=== PATIENT | male | born 1950 | race Caucasian/White ===

== ENCOUNTER 2018-10-08 12:05 | Emergency (ER) | payer MEDICARE, SELFPAY ==
[2018-10-08 12:25] VITALS: BP 148/85; PULSE 81; RESP 20; TEMP 36.6; O2SAT 99
--- NOTE | 2018-10-08 12:41 | ED.BACK ---
HPI - Back Pain/Injury General Chief Complaint: Back Pain/Injury Stated Complaint: believe he's having a kidney stone Time Seen by Provider: 10/08/18 12:37 Source: patient Mode of arrival: ambulatory Limitations: no limitations History of Present Illness HPI Narrative: Patient is a 68-year-old male who presents with right flank pain started suddenly he feels like it is radiating down his back but he feels like he has frequent urination and might be going to his groin as well. He has had a kidney stone on the left few years back he said this feels similar. However does not kidney stones frequently. He denies blood in his urine. He has been nauseous and vomiting as well. He denies any fevers. MD Complaint: other (Right flank pain) Duration: intermittent and progressively worsening Similar Symptoms Previously: Yes Location: right flank Quality: sharp Related Data Previous Rx's Medication Instructions Recorded tamsulosin [Flomax] 0.4 mg PO DAILY #10 cap 10/08/18 tramadol 50 mg PO Q6H PRN #10 tab 10/08/18 Allergies Allergy/AdvReac Type Severity Reaction Status Date / Time No Known Drug Allergies Allergy Verified 10/08/18 12:59 Review of Systems Review of Systems GENERAL: Denies chills, fatigue, malaise, fever, sweats, travel HEENT: Denies sinus pain, ear pain, sore throat, difficulty swallowing, neck pain RESPIRATORY: Denies dyspnea, cough, wheezing, hemoptysis, sputum. CARDIOVASCULAR: Denies chest pain, palpitations, orthopnea, edema GASTROINTESTINAL: Denies nausea, vomiting, abdominal pain, diarrhea, constipation, melena. : See HPI MUSCULOSKELETAL: Denies weakness, joint pain, or bony pain SKIN: No rash, no erythema, no pruritus NEUROLOGIC: Denies weakness, dizziness, headache, numbness, change in speech, confusion PSYCHIATRIC: No concerning psychosocial issues. 12 point review of systems is negative except for those stated above and HPI PFSH Medical History (Updated 10/08/18 @ 14:48 by Natalie Martin DO) Kidney stones (Acute) Social History (Updated 10/08/18 @ 12:49 by Natalie Martin DO) substance use type: does not use Social History (Updated 10/08/18 @ 12:49 by Natalie Martin DO) substance use type: does not use Exam Initial Vital Signs Initial Vital Signs: Vital Signs Temperature 97.8 F 10/08/18 12:25 Pulse Rate 81 10/08/18 12:25 Respiratory Rate 20 10/08/18 12:25 Blood Pressure 148/85 H 10/08/18 12:25 Pulse Oximetry 99 10/08/18 12:25 GENERAL: Patient appears in pain and in [no acute] distress. HEENT: Head atraumatic,EOMI, pupils reactive, face symmetric CARDIOVASCULAR: Regular rate and rhythm without murmurs, rubs or gallops. RESPIRATORY: Breath sounds equal bilaterally, no wheezes rales or rhonchi. ABDOMEN: Soft, nontender. Normoactive bowel sounds all 4 quadrants. No guarding or rebound. : Right flank tenderness to palpation EXTREMITIES: Normal range of motion, no clubbing or edema. Neurovascularly intact NEUROLOGICAL: Alert and oriented x4.Normal gait and speech. Cranial nerves II through XII grossly intact. SKIN: Warm, dry, no laceration, no petechiae, no rashes or lesions. Course Orders Ordered: ED Orders 10/08/18 12:40 CT kidney ureter bladder (KUB) Stat 10/08/18 12:41 Complete Blood Count AUTO DIFF Stat Comprehensive Metabolic Panel Stat Lipase Stat 10/08/18 14:36 Urinalysis and Microscopic Stat Discontinued Medications Sodium Chloride (Normal Saline 0.9%) 1,000 mls @ 1,000 mls/hr IV CONT VIDAL Last Infusion: 10/08/18 14:22 Dose: 0 mls/hr Admin: 10/08/18 13:14 Dose: 1,000 mls/hr Lidocaine HCl 7.9 ml/ Sodium (Chloride) 57.9 mls @ 347.4 mls/hr IV NOW ONE Stop: 10/08/18 13:42 Last Infusion: 10/08/18 14:34 Dose: 0 mls/hr Admin: 10/08/18 14:15 Dose: 347.4 mls/hr Ketorolac Tromethamine (Toradol) 30 mg IV NOW ONE Stop: 10/08/18 12:41 Ketorolac Tromethamine (Toradol) 30 mg IV NOW ONE Stop: 10/08/18 12:49 Last Admin: 10/08/18 12:51 Dose: 30 mg Ondansetron HCl (Zofran) 4 mg IV NOW ONE Stop: 10/08/18 12:41 Last Admin: 10/08/18 12:52 Dose: 4 mg Vital Signs - 8 hr 10/08/18 12:25 10/08/18 13:47 10/08/18 14:17 Temperature 97.8 F Pulse Rate 81 73 75 Respiratory Rate 20 12 16 Blood Pressure 148/85 H Blood Pressure [Right Arm] 124/71 98/56 L Pulse Oximetry 99 95 99 10/08/18 14:33 Temperature Pulse Rate 77 Respiratory Rate 19 Blood Pressure Blood Pressure [Right Arm] 128/78 Pulse Oximetry 96 MDM - Back Pain/Injury Lab Data Attestation: I reviewed the patient's lab results. Result diagrams: 10/08/18 12:41 10/08/18 12:41 Lab Results 10/08/18 10/08/18 10/08/18 Range/Units 12:41 12:41 14:36 WBC 10.5 (4.5-11.0) X10^3/uL RBC 4.64 (4.5-5.9) X10^6/uL Hgb 14.7 (13.5-17.5) g/dL Hct 43.4 (41-53) % MCV 93.5 (80-100) fL MCH 31.6 (26-34) PG MCHC 33.9 (30-36) % RDW 12.7 (11.6-14.8) % Plt Count 365 (150-400) X10^3/uL Neut % (Auto) 72.1 (50-75) % Lymph % (Auto) 18.0 L (25-40) % Towns % (Auto) 7.0 (3-14) % Eos % (Auto) 2.3 (2-4) % Baso % (Auto) 0.6 (0-2) % Neut # (Auto) 7600 H (5611-1596) /uL Lymph # (Auto) 1900 (6156-9773) /uL Towns # (Auto) 700 (0-900) /uL Eos # (Auto) 200 (0-450) /uL Baso # (Auto) 100 (0-100) /uL Sodium 143 (137-145) mmol/L Potassium 3.9 (3.4-5.1) mmol/L Chloride 103 (98-107) mmol/L Carbon Dioxide 26 (22-32) mmol/L BUN 15 (9-20) mg/dL Creatinine 1.20 (0.66-1.25) mg/dL Estimated GFR > 60.0 (>60) mL/min BUN/Creatinine Ratio 12.5 (6-22) Glucose 151 H (80-110) mg/dL Calcium 9.7 (8.4-10.2) mg/dL Total Bilirubin 0.6 (0.2-1.3) mg/dL AST 35 (17-59) IU/L ALT 43 (21-72) IU/L Alkaline Phosphatase 130 H (38-126) U/L Total Protein 7.9 (6.3-8.2) g/dL Albumin 4.1 (3.5-5.0) g/dL Globulin 3.8 (1.7-4.1) g/dL Albumin/Globulin Ratio 1.1 (1.0-2.8) Lipase 56 (23-300) U/L Urine Color [place] Urine Appearance Sl cloudy Urine pH 5.0 (4.5-8.0) Ur Specific [place] >=1.030 H (1.000-1.035) Urine Protein 1+ H (Negative) Urine Glucose (UA) Negative (Negative) g/dL Urine Ketones Trace H (NEGATIVE) Urine Occult Blood Trace-lysed (Negative) Urine Nitrate Negative (Negative) Urine Bilirubin Negative (NEGATIVE) Urine Urobilinogen 0.2 (0.2) E.U./dL Ur Leukocyte Esterase 1+ H (NEGATIVE) Imaging Data CT scan - abdomen: Radiologist's impression: PROCEDURE: CT KIDNEY URETER BLADDER (KUB) INDICATIONS: right flank pain TECHNIQUE: Noncontrast 5 mm thick sections acquired from the diaphragms to the symphysis. 5 mm thick coronal and sagittal reformats were then performed. For radiation dose reduction, the following was used: automated exposure control, adjustment of mA and/or kV according to patient size. COMPARISON: None. FINDINGS: Image quality: Excellent. Lung bases: Lung bases are clear. 6 mm nodule is noted in the right middle lobe (series 3, image 6). Heart size is normal. Urinary system: Both kidneys are normal in size. A 3 mm stone is noted in the right UVJ causing mild right-sided hydroureteronephrosis. No left-sided renal stones or hydronephrosis.. Bladder wall thickness is normal; no calcified bladder stones. Other solid organs: Liver is normal in size. Gallbladder contains a large, partially calcified stone. Pancreas is normal in contours. Punctate calcifications noted in the pancreas compatible sequela of chronic pancreatitis. Spleen is normal in size. No adrenal nodules. Peritoneum and bowel: Unenhanced bowel loops demonstrate normal wall thickness and caliber. Scattered colonic diverticuli without evidence of diverticulitis. No free fluid or air. The appendix is not definitely visualized, however no free fluid or inflammatory changes are identified adjacent to the cecum. Nodes and vessels: No retroperitoneal or mesenteric adenopathy by size criteria. Aorta and inferior vena cava are normal in caliber. Scattered atherosclerotic calcifications involving the abdominal and pelvic vasculature. Abdominal wall: Small fat containing umbilical hernia. Pelvis: No free pelvic fluid. No inguinal adenopathy. Small fat containing left inguinal hernia. Bones: No suspicious bony lesions. No vertebral body compression fractures. Spine degenerative disc disease and facet arthropathy. IMPRESSION: 1. 3 mm right UVJ stone causing mild right-sided hydroureteronephrosis. 2. Cholelithiasis. 3. Colonic diverticulosis without evidence of diverticulitis. 4. 6 mm right lower lobe nodule. Recommend followup imaging based on criteria no below. Fleischner Society criteria for SOLID lung nodule followup. Nodule size (mm)Low-risk patientHigh-risk patient<6 (single or multiple)No routine followup.Optional CT at 12 months. 6-8 (single or multiple)CT at 6-12 months, then optional CT at 18-24 mo.CT at 6-12 months, then CT at 18-24 months. >8 (single)CT at 3 months, PET-CT, or biopsy. Same as for low-risk pts. >8 (multiple)CT at 3-6 months, then optional CT at 18-24 mo.CT at 3-6 months, then CT at 18-24 months. Recommendations do not apply to lung cancer screening, patients with immunosuppression, or patients with known primary cancer. Dictated by: Michelle Cam MD, PhD on 10/08/2018 at 13:08 [facility] Narrative Medical decision making narrative: Patient is still having some pain after Toradol. Lidocaine ordered. He does have a kidney stone at the UVJ on the right side. Patient pulled his own IV and wanted to be discharged after lidocaine. His urinalysis was not back yet. However does not appear to be infected. He is given pain medication and Flomax. He does have a urologist Dr. Ariana Stein, whom I recommended he follow up with. Discharge Plan Departure Patient Disposition: Home Clinical Impression: Calculus of right kidney Discharge Date/Time: 10/08/18 15:04 Interventions: ED Discharge Assessment Last Done: 10/08/18 15:03 Instructions: DI for Kidney Stones Activity Restrictions/Additional Instructions: You did not wait for urinalysis results it is unknown if you have a bladder infection along with a kidney stone. You may require antibiotics. If urine is positive we will call you in 2-3 days *Increase fluid intake *Call urology office tomorrow, to schedule follow-up appointment. Strain urine, try to catch stone -If you should have fever, or pain is uncontrolled with medication at home or any other concerning symptoms return to ER for further evaluation MEDICATIONS Take Motrin 800 mg every 8 hours as needed for pain Take tramadol every 6 hours if needed for severe pain Take Zofran every 4-6 hours if needed for nausea Take Flomax 0.4 mg once daily for 7 days to help with passage of stone CONTROLLED SUBSTANCE DISCHARGE (Narcotoic/benzodiazepine) 1. You have been prescribed narcotic medications, it does have acetaminophen/Tylenol/paracetamol in it so do not take extra Tylenol or Tylenol containing products TRAMADOL DOES NOT CONTAIN TYLENOL/ACETAMINOPHEN 2. Please understand that we cannot provide further refills of narcotics, benzodiazepines or controlled substances through the ED and her pain management will need to be through your provider. 3. While on these medications you cannot drive or operate heavy machinery. 4. You cannot sign legal documents or perform any duties such as this. 5. As long as you're taking opiate pain medications he should also be taking a stool softener such as Colace, Dulcolax, MiraLAX or prune juice, to help avoid constipation. Prescriptions: New tramadol 50 mg tablet 50 mg PO Q6H PRN (Reason: pain) Qty: 10 RF: 0 tamsulosin [Flomax] 0.4 mg capsule 0.4 mg PO DAILY Qty: 10 RF: 0 Referrals: Kristyn Holcomb MD [Physician] -
[2018-10-08] MEDS: KETOROLAC 60 MG/2 ML VIAL 30 MG IV (12:51)
[2018-10-08] MEDS: ONDANSETRON 4 MG/2 ML INJ IV (12:52)
[2018-10-08 12:54] LABS: Add Manual Diff / Slide Review NO; Basophils Absolute Auto 100 /uL (0-100); Basophils Percent Auto 0.6 % (0-2); Eosinophils Absolute Auto 200 /uL (0-450); Eosinophils Percent Auto 2.3 % (2-4); Hematocrit 43.4 % (41-53); Hemoglobin 14.7 g/dL (13.5-17.5); Lymphocytes Absolute Auto 1900 /uL (1100-4500); Mean Corpuscular HGB Conc 33.9 % (30-36); Mean Corpuscular Hemoglobin 31.6 PG (26-34); Mean Corpuscular Volume 93.5 fL (80-100); Monocytes Absolute Auto 700 /uL (0-900); Neutrophils Absolute Auto 7600 /uL (1500-7000); Neutrophils Percent Auto 72.1 % (50-75); Platelet Count 365 X10^3/uL (150-400); Red Blood Cell Count 4.64 X10^6/uL (4.5-5.9); Red Cell Distribution Width 12.7 % (11.6-14.8); White Blood Cell Count 10.5 X10^3/uL (4.5-11.0)
[2018-10-08 13:06] LABS: Alanine Aminotransferase 43 IU/L (21-72); Albumin 4.1 g/dL (3.5-5.0); Albumin Globulin Ratio 1.1 (1.0-2.8); Alkaline Phosphatase 130 U/L (38-126); Aspartate Aminotransferase 35 IU/L (17-59); BUN Creatinine Ratio 12.5 (6-22); Bilirubin Total 0.6 mg/dL (0.2-1.3); Blood Urea Nitrogen 15 mg/dL (9-20); Calcium 9.7 mg/dL (8.4-10.2); Carbon Dioxide 26 mmol/L (22-32); Chloride 103 mmol/L (98-107); Estimated Glomerular Filt Rate > 60.0 mL/min (>60); Globulin 3.8 g/dL (1.7-4.1); Glucose 151 mg/dL (80-110); HEMOLYSIS < 15 (0-50); Lipase 56 U/L (23-300); Potassium 3.9 mmol/L (3.4-5.1); Sodium 143 mmol/L (137-145); Total Protein 7.9 g/dL (6.3-8.2)
[2018-10-08] MEDS: SODIUM CHLORIDE 0.9% 1,000 ML 1000 ML IV (13:14)
[2018-10-08 13:47] VITALS: BP 124/71; PULSE 73; RESP 12; O2SAT 95
[2018-10-08] MEDS: LIDOCAINE 2% IV (14:15)
[2018-10-08] MEDS: SODIUM CHLORIDE 0.9% IV (14:15)
[2018-10-08 14:17] VITALS: BP 98/56; PULSE 75; RESP 16; O2SAT 99
[2018-10-08 14:33] VITALS: BP 128/78; PULSE 77; RESP 19; O2SAT 96
[2018-10-08 14:41] LABS: Bacteria Urine None Seen
[2018-10-08 14:43] LABS: Appearance Urine UA SL CLOUDY; Bilirubin Urine UA NEGATIVE (NEGATIVE); Color Urine UA ORANGE; Glucose Urine UA NEGATIVE (Negative); Ketones Urine UA TRACE (NEGATIVE); Leukocyte Esterase Urine UA 1+ (NEGATIVE); Nitrite Urine UA NEGATIVE (Negative); Occult Blood Urine UA TRACE-LYSED (Negative); Protein Urine UA 1+ (Negative); Specific Gravity Urine UA >=1.030 (1.000-1.035); Urobilinogen Urine UA 0.2 E.U./dL (0.2)
[2018-10-08 15:16] LABS: RBC Urine 0-1/HPF (0-5/HPF); WBC Urine 5-10/HPF (0-5/HPF)
[2018-10-08 15:17] LABS: Amorphous Sediment Urine 1+; Culture Indicated Urine Specimen Cultured; Mucus Urine 1+ (Negative); Uric Acid Crystals Urine Few
== END 2018-10-08 15:04 | disposition home or self-care (01) ==
PROVIDERS: Emergency Provider Emergency Medicine
DX: N20.0 Calculus of kidney (principal)
CPT/HCPCS: 36591; 74176; 80053; 81001; 83690; 85025; 87077; 87086; 87186; 96361; 96365; 96375; 99283; 99284; J1885; J2405

== ENCOUNTER 2020-10-20 12:49 | Emergency (ER) | payer MEDICARE, SELFPAY ==
[2020-10-20 12:58] VITALS: BP 129/79; PULSE 85; RESP 18; TEMP 36.8; O2SAT 96; BMI 27.1
--- NOTE | 2020-10-20 14:46 | ED.URI ---
HPI - URI/Sore Throat <Ramiro Benites PA-C - Last Filed: 10/20/20 17:09> General Chief Complaint: Upper Respiratory Symptoms Stated Complaint: Thinks he has the flu Time Seen by Provider: 10/20/20 14:16 Source: patient Mode of arrival: Wheelchair Limitations: no limitations History of Present Illness HPI Narrative: Joe presents today with chief complaint of sore throat, chills, fatigue, headache, cough that started 2 days ago. He has not been doing anything to help alleviate his symptoms. Nothing seems to make it worse. He was previously vaccinated 1 month ago for COVID. He has past medical history of Crohn's disease but denies any significant fever, abdominal pain, nausea, vomiting, diarrhea or constipation. He denies any known sick contacts. Related Data Previous Rx's Medication Instructions Recorded tamsulosin 0.4 mg capsule (Flomax) 0.4 mg PO DAILY #10 cap 10/08/18 tramadol 50 mg tablet 50 mg PO Q6H PRN #10 tab 10/08/18 Allergies Allergy/AdvReac Type Severity Reaction Status Date / Time No Known Drug Allergies Allergy Verified 10/20/20 14:02 Review of Systems <Ramiro Benites PA-C - Last Filed: 10/20/20 17:09> Review of Systems Narrative: As per HPI Patient History <Ramiro Benites PA-C - Last Filed: 10/20/20 17:09> Medical History (Updated 10/20/20 @ 16:30 by Ramiro Benites PA-C) Kidney stones Social History (Updated 10/08/18 @ 12:49 by Natalie Martin DO) Smoking Status: Never smoker substance use type: does not use Smoking Status: Never smoker Substance Use Type: does not use Exam <Ramiro Benites PA-C - Last Filed: 10/20/20 17:09> Narrative Exam Narrative: Const General: cooperative, healthy appearing, comfortable and no acute distress Nutritional Appearance: average body habitus and well nourished Orientation: alert and oriented x3 HENMT Head: normal to inspection and normocephalic Ears: hearing grossly normal bilaterally, external ears normal, TM's normal bilaterally, EAC's normal, mastoids normal and no periauricular adenopathy Nose: external nose normal, nares normal and no nasal discharge Face and sinus: normal facial exam, sinuses nontender and face symmetric Mouth: oral mucosae normal, lip normal, tongue normal and moist mucous membranes Teeth and gingiva: dentition normal and gingiva normal Throat: posterior oropharynx normal, uvula midline, no postnasal drainage and no uvular edema Eyes periorbital findings normal, eyelids normal, conjunctivae normal Neck: normal visual inspection, full ROM, no lymphadenopathy, no meningeal signs and supple Resp normal respiratory effort, able to speak in complete sentences, not labored and no respiratory distress, clear to auscultation bilaterally, no crackles, no rales and no wheezes Cardio regular rate regular rhythm Heart Sounds: no gallops, no murmurs and no rubs Extrem normal to inspection, no pedal edema and no calf tenderness Neuro Alert and Oriented x3, normal gait, moves all extremities. Initial Vital Signs Initial Vital Signs: Vital Signs Temperature 98.3 F 10/20/20 12:58 Pulse Rate 85 10/20/20 12:58 Respiratory Rate 18 10/20/20 12:58 Blood Pressure 129/79 10/20/20 12:58 Pulse Oximetry 96 10/20/20 12:58 <Nohemi Horowitz MD - Last Filed: 10/21/20 09:17> Initial Vital Signs Initial Vital Signs: Vital Signs Temperature 98.3 F 10/20/20 12:58 Pulse Rate 85 10/20/20 12:58 Respiratory Rate 18 10/20/20 12:58 Blood Pressure 129/79 10/20/20 12:58 Pulse Oximetry 96 10/20/20 12:58 Course <Ramiro Benites PA-C - Last Filed: 10/20/20 17:09> Orders Ordered: ED Orders 10/20/20 14:33 Respiratory Panel (Film Array) Stat Vital Signs Vital signs: Vital Signs - 8 hr 10/20/20 12:58 10/20/20 15:00 10/20/20 16:00 Temperature 98.3 F Pulse Rate 85 86 84 Respiratory Rate 18 16 15 Blood Pressure 129/79 123/72 115/73 Pulse Oximetry 96 92 93 10/20/20 16:43 Temperature Pulse Rate 86 Respiratory Rate 16 Blood Pressure 126/69 Pulse Oximetry 93 <Nohemi Horowitz MD - Last Filed: 10/21/20 09:17> Orders Ordered: ED Orders 10/20/20 14:33 Respiratory Panel (Film Array) Stat Vital Signs Vital signs: Vital Signs - 8 hr 10/20/20 12:58 10/20/20 15:00 10/20/20 16:00 Temperature 98.3 F Pulse Rate 85 86 84 Respiratory Rate 18 16 15 Blood Pressure 129/79 123/72 115/73 Pulse Oximetry 96 92 93 10/20/20 16:43 Temperature Pulse Rate 86 Respiratory Rate 16 Blood Pressure 126/69 Pulse Oximetry 93 MDM - URI/Sore Throat <Ramiro Benites PA-C - Last Filed: 10/20/20 17:09> Lab Data Labs: Lab Results 10/20/20 Range/Units 14:33 Chlamy pneumoniae PCR Not detected (Not Detect) Adenovirus (PCR) Not detected (Not Detect) B. pertussis DNA (PCR) Not detected (Not Detecte) B.parapertussis DNA PCR Not detected (Not Detecte) Coronavirus OC43 (PCR) Not detected (Not Detect) Coronavirus HKU1 (PCR) Not detected (Not Detect) Coronavirus 229E (PCR) Not detected (Not Detect) SARS-CoV-2 (PCR) Not detected (Not Detecte) Coronavirus NL63 (PCR) Not detected (Not Detect) Human Metapneumovir PCR Not detected (Not Detect) Influenza Type A (PCR) Not detected (Not Detect) Influenza Type B (PCR) Not detected (Not Detect) M. pneumoniae (PCR) Not detected (Not Detect) Parainfluenza 1 (PCR) Not detected (Not Detect) Parainfluenza 2 (PCR) Not detected (Not Detect) Parainfluenza 3 (PCR) Detected H (Not Detect) Parainfluenza 4 (PCR) Not detected (Not Detect) RSV (PCR) Not detected (Not Detect) Entero/Rhino (PCR) Not detected (Not Detect) MDM Narrative Medical decision making narrative: Patient is tolerating oral intake normally and is oxygenating well. Physical examination is reassuring at this time. He tested positive for parainfluenza 3 virus which explains his symptoms. Will discharge home at this time with ER return precautions clearly explained. Patient verbalizes understanding and agrees to plan and has no further concerns at this time. Thank you A [id number] system was used with the dictation of this note. Please disregard any spelling or grammatical errors. <Nohemi Horowitz MD - Last Filed: 10/21/20 09:17> Lab Data Labs: Lab Results 10/20/20 Range/Units 14:33 Chlamy pneumoniae PCR Not detected (Not Detect) Adenovirus (PCR) Not detected (Not Detect) B. pertussis DNA (PCR) Not detected (Not Detecte) B.parapertussis DNA PCR Not detected (Not Detecte) Coronavirus OC43 (PCR) Not detected (Not Detect) Coronavirus HKU1 (PCR) Not detected (Not Detect) Coronavirus 229E (PCR) Not detected (Not Detect) SARS-CoV-2 (PCR) Not detected (Not Detecte) Coronavirus NL63 (PCR) Not detected (Not Detect) Human Metapneumovir PCR Not detected (Not Detect) Influenza Type A (PCR) Not detected (Not Detect) Influenza Type B (PCR) Not detected (Not Detect) M. pneumoniae (PCR) Not detected (Not Detect) Parainfluenza 1 (PCR) Not detected (Not Detect) Parainfluenza 2 (PCR) Not detected (Not Detect) Parainfluenza 3 (PCR) Detected H (Not Detect) Parainfluenza 4 (PCR) Not detected (Not Detect) RSV (PCR) Not detected (Not Detect) Entero/Rhino (PCR) Not detected (Not Detect) Discharge Plan Departure Patient Disposition: Home Clinical Impression: Upper respiratory infection Qualifiers: URI type: unspecified viral URI Qualified Code(s): J06.9 - Acute upper respiratory infection, unspecified Activity Restrictions/Additional Instructions: It was nice to meet you this afternoon. Please use dhet-jzx-ahicany medications such as Mucinex, Sudafed, throat lozenges warm tea with honey as needed to help with symptoms. I expect your symptoms to improve over the next few days to 1 week. You may have a residual cough that lingers a short period of time after this. Please return if you experience chest pain, difficulty breathing or any other new or worsening complaints. Thank you Ramiro Benites PAC Prescriptions: No Action tramadol 50 mg tablet 50 mg PO Q6H PRN (Reason: pain) Qty: 10 RF: 0 tamsulosin [Flomax] 0.4 mg capsule 0.4 mg PO DAILY Qty: 10 RF: 0 Referrals: Garry Fleming MD [Primary Care Provider] - <Nohemi Horowitz MD - Last Filed: 10/21/20 09:17> Cosign ED Attending Cosignature Attestation: I was immediately available in the department for consultation throughout this patient's visit. I agree with documentation as above. Nohemi Horowitz MD
[2020-10-20 15:00] VITALS: BP 123/72; PULSE 86; RESP 16; O2SAT 92
[2020-10-20 16:00] VITALS: BP 115/73; PULSE 84; RESP 15; O2SAT 93
[2020-10-20 16:11] LABS: Adenovirus Not Detected (Not Detect); B. parapertussis Not Detected (Not Detecte); Bordetella pertussis Not Detected (Not Detecte); Chlamydophila pneumoniae Not Detected (Not Detect); Coronavirus 229E Not Detected (Not Detect); Coronavirus HKU1 Not Detected (Not Detect); Coronavirus NL 63 Not Detected (Not Detect); Coronavirus OC43 Not Detected (Not Detect); Human Metapneumovirus Not Detected (Not Detect); Human Rhinovirus/Enterovirus Not Detected (Not Detect); Influenza A Not Detected (Not Detect); Influenza B Not Detected (Not Detect); Parainfluenza Virus 1 Not Detected (Not Detect); Parainfluenza Virus 2 Not Detected (Not Detect); Parainfluenza Virus 4 Not Detected (Not Detect); Respiratory Syncytial Virus Not Detected (Not Detect); SARS- CoV-2 Not Detected (Not Detecte)
[2020-10-20 16:12] LABS: Mycoplasma pneumoniae Not Detected (Not Detect)
[2020-10-20 16:13] LABS: Parainfluenza Virus 3 Detected (Not Detect)
[2020-10-20 16:43] VITALS: BP 126/69; PULSE 86; RESP 16; O2SAT 93
== END 2020-10-20 16:43 | disposition home or self-care (01) ==
PROVIDERS: Emergency Provider Physician Assistant; PCP Family Medicine
DX: J06.9 Acute upper respiratory infection, unspecified (principal); B34.8 Other viral infections of unspecified site; Z20.822 Contact with and (suspected) exposure to COVID-19
CPT/HCPCS: 87633; 99282

== ENCOUNTER → 2022-07-22 13:16 | Outpatient (CLI) | payer MEDICARE, MEDICAID, SELFPAY ==
--- NOTE | 2022-07-22 13:18 | DI.US.S_ITS ---
PROCEDURE: US ABDOMEN COMPLETE INDICATIONS: Unspecified abdominal pain TECHNIQUE: Real-time scanning was performed of the abdominal and retroperitoneal organs, with image documentation. COMPARISON: [facility], CT, CT ABDOMEN PELVIS WITH CONTRAST, 07/18/2019, 21:30. [facility], US, US ABDOMEN LIMITED, 07/18/2019, 22:51. FINDINGS: Liver: The liver demonstrates mildly enlarged size. The liver demonstrates generalized moderately increased echogenicity. This decreases ultrasound sensitivity for detection of hepatic masses. There is a focus of relatively decreased echogenicity seen within the anterior right lobe of the liver, which is nonspecific, yet likely related to focal fatty sparing. The main portal vein demonstrates normal size and demonstrates normal appearing, hepatopetal flow. Gallbladder: The gallbladder is filled with stones. The gallbladder wall is not thickened, measuring 3 mm or less. No specific pericholecystic fluid is seen. The sonographic Ram sign is positive. Biliary ducts: Intrahepatic bile ducts are non-dilated. Extrahepatic bile duct caliber measures 4 mm. Normal is 6-7 mm or less in diameter, or 10 mm or less post-cholecystectomy. Pancreas: Not well seen, obscured by overlying bowel gas. Spleen: Spleen is normal in size and homogeneous in echotexture. Kidneys: Kidneys are normal in size and echotexture. Right kidney measures 10.5 cm long; left kidney measures 12.3 cm long. No hydronephrosis or nephrolithiasis. No solid masses. Aorta: Visualized aorta is normal in caliber at less than 3 cm. Iliacs: Proximal common iliac arteries are normal in caliber at less than 2.5 cm. IVC: Intrahepatic inferior vena cava is patent. Miscellaneous: No free abdominal fluid. IMPRESSION: Stone filled gallbladder with a positive sonographic Ram sign. No additional sonographic signs of cholecystitis are seen, however. Please correlate with physical examination findings, patient presentation, and laboratory values. The liver demonstrates increased echogenicity. This finding is nonspecific, yet it is most commonly attributed to fatty infiltration. Dictated by: Lui Parikh M.D. on 07/22/2022 at 14:45 Approved by: Lui Parikh M.D. on 07/22/2022 at 14:47
== END ==
PROVIDERS: PCP Family Medicine; Referring Provider Family Medicine; Visit Provider Family Medicine
DX: R10.9 Unspecified abdominal pain (principal); K80.20 Calculus of gallbladder without cholecystitis without obstruction
CPT/HCPCS: 76700

== ENCOUNTER 2023-04-20 11:44 | Day surgery (SDC) | payer MEDICARE, MEDICAID, SELFPAY ==
--- NOTE | 2023-04-20 | PATH_ITS ---
[facility] Accession Number: [id number] No. of containers..07 Tissue . 01 Material submitted: . PART A: colon - ASCENDING PART B: colon - CECAL POLYP PART C: colon - TRANSVERSE PART D: colon - DISTAL TRANSVERSE POLYP PART E: colon - DESCENDING PART F: colon - SIGMOID PART G: rectum - RECTUM . 01 Diagnosis: A. Ascending Colon, Biopsy: Moderately active colitis with distortion of crypt architecture. Please see comment. Negative for granulomas, dysplasia, and malignancy. . B. Cecum, Polyp: Consistent with inflammatory polyp. Negative for dysplasia and malignancy. . C. Transverse Colon, Biopsy: Mildly active colitis with associated distortion of crypt architecture. Please see comment. Negative for granulomas, dysplasia, and malignancy. . D. Distal Transverse Colon, Polyp: Consistent with inflammatory polyp. Negative for dysplasia and malignancy. . E. Descending Colon, Biopsy: Mildly active colitis with patchy distortion of crypt architecture. Please see comment. Negative for granulomas, dysplasia, and malignancy. . F-G. Sigmoid Colon, Rectum, Biopsies: Colonic mucosa with no diagnostic abnormality. Negative for active, chronic, and microscopic colitis. Negative for dysplasia and malignancy. . [facility] 04/22/2023 1338 Local . 01 Comment: A, C, E: The ascending and transverse colon biopsies show moderate to mild neutrophilic activity including cryptitis and a few crypt abscesses. There is associated distortion of crypt architecture including branched crypts and shortened crypt length with increased background lymphoplasmacytosis and eosinophils. The descending colon biopsy shows mild neutrophilic cryptitis with patchy branched crypts and lymphoplasmacytosis. There are no viral cytopathic effects or parasitic organisms identified. No granulomas are seen. The overall morphologic appearance raises a differential diagnosis which includes infection, medication-related mucosal injury, diverticular disease-associated colitis/trauma/prolapse, and idiopathic inflammatory bowel disease. . 01 Electronically signed: . Kelley Rodriguez MD, Pathologist NPI- [id number] . 01 Gross description: . Part A: ASCENDING: Received in formalin is 2 fragment(s) of sandoval, soft tissue measuring 0.2 x 0.2 x 0.1 cm to 0.2 x 0.1 x 0.1 cm submitted entirely in 1 cassette(s) Part B: CECAL POLYP: Received in formalin is 1 fragment(s) of sandoval, soft tissue measuring 0.1 x 0.1 x 0.1 cm submitted entirely in 1 cassette(s) Part C: TRANSVERSE: Received in formalin is multiple fragment(s) of sandoval, soft tissue measuring 0.5 x 0.3 x 0.1 cm in aggregate submitted entirely in 1 cassette(s) Part D: DISTAL TRANSVERSE POLYP: Received in formalin is 1 fragment(s) of sandoval, soft tissue measuring 0.2 x 0.1 x 0.1 cm submitted entirely in 1 cassette(s) Part E: DESCENDING: Received in formalin is 2 fragment(s) of sandoval, soft tissue measuring 0.3 x 0.2 x 0.1 cm to 0.1 x 0.1 x 0.1 cm submitted entirely in 1 cassette(s) Part F: SIGMOID: Received in formalin is 2 fragment(s) of sandoval, soft tissue measuring 0.2 x 0.2 x 0.1 cm to 0.2 x 0.1 x 0.1 cm submitted entirely in 1 cassette(s) Part G: RECTUM: Received in formalin is 2 fragment(s) of sandoval, soft tissue measuring 0.1 x 0.1 x 0.1 cm each, submitted entirely in 1 cassette(s) /AGATHA 04/21/2023 0415 Local . 01 Pathologist provided ICD-10: K52.9, K63.5 . 01 CPT . 092130, 258523, 654185, 527461, 612122, 515783, 146580 Specimen Comment: A courtesy copy of this report has been sent to [phone] Performed at: 01 [facility] [address] [place] [address] Suite [facility], [place], [place] [id number] MD Chriss Pacheco MD Phone: [phone]
--- NOTE | 2023-04-20 12:42 | PM.HP.1 ---
History of Present Illness History of Present Illness Date Patient Seen: 04/20/23 Time Patient Seen: 12:42 Chief complaint: SDC Narrative: 72-year-old male with a history of Crohn's here for restaging of his disease. He continues to require Imodium alongside Humira at this point. [facility] Medical History Kidney stones Social History Smoking Status: Never smoker substance use type: does not use Meds Home Medications and Allergies Home Medications Medication Instructions Recorded Confirmed Type tamsulosin 0.4 mg capsule (Flomax) 0.4 mg PO DAILY #10 caps 10/08/18 Rx tramadol 50 mg tablet 50 mg PO Q6H PRN pain #10 tabs 10/08/18 Rx Allergies Allergy/AdvReac Type Severity Reaction Status Date / Time No Known Drug Allergies Allergy Verified 10/20/20 14:02 Review of Systems Review of Systems ROS: Yes All systems reviewed with the patient and are negative except as otherwise documented Exam Const General: cooperative HENMT Head: normal to inspection Eyes General: appearance normal, both eyes and all related structures Neck Neck: normal visual inspection Chest Chest: normal inspection of the chest Resp Effort & Inspection: normal respiratory effort Cardio Rate: regular rate GI Inspection: normal to inspection Skin General: no rashes or lesions noted Neuro General: patient alert and patient awake Extrem General: normal to inspection and no pedal edema Psych Appearance: grossly normal Assessment & Plan Assessment & Plan narrative: 72-year-old male with a history of Crohn's colitis. Colonoscopy is pursued today for restaging to determine whether any changes in his therapy are warranted.
--- NOTE | 2023-04-20 12:45 | PM.PREOP ---
Pre-operative Note Interval Note History & Physical reviewed/Exam performed by Physician: Yes Changes to H&P: No ASA Class (for procedural sedation): II
[2023-04-20] MEDS: LACTATED RINGERS 1,000 ML 100 ML IV (13:07)
[2023-04-20 13:10] VITALS: BP 133/79; PULSE 100; RESP 18; TEMP 36.2; O2SAT 97
--- NOTE | 2023-04-20 13:26 | SUR.PREOP ---
1310 Anesthesia informed of elevated glucose. no orders received
[2023-04-20] MEDS: INSULIN REGULAR 100 UNIT/ML 3 ML VIAL 8 UNIT IV (13:55)
[2023-04-20] MEDS: SODIUM CHLORIDE 0.9% 1,000 ML 100 ML IV (14:00)
[2023-04-20 15:56] VITALS: BP 100/66; PULSE 81; RESP 19; TEMP 36.1; O2SAT 93
--- NOTE | 2023-04-20 15:56 | PM.OP.COLON ---
Operative Date/Time/Diagnoses Date of procedure: 04/20/23 Time of procedure: 15:56 Pre-op diagnosis: History of Crohn's colitis here for restaging Post-op diagnosis: same Procedure & Clinicians Study performed: Colonoscopy with biopsies Same procedure as scheduled: Yes Indications: Crohn's colitis. Here for restaging. Surgeon: Benitez Perkins Procedure Notes SCOAP/Timeout: Done Procedure in detail: After the risks and benefits were explained, written and verbal informed consent was obtained. The patient was brought into the procedure room and placed into the left lateral decubitus position. Please see anesthesia notes for sedation details. Digital rectal examination was accomplished. The scope was introduced into the patient and advanced under direct visualization to the cecum as identified by the appendiceal orifice and ileocecal valve. The scope was slowly withdrawn to carefully examine the mucosa for any defects or lesions. Comprehensive imaging was accomplished throughout the rectum including the dentate line. The colon was decompressed, the scope was then removed from the patient who tolerated the procedure well. Adult colonoscope Bowel prep poor Scope withdrawal time: Not applicable. See below. Sedation minutes: 37 Complications: none Impression: The rectum and sigmoid were normal in appearance. Towards the proximal end of the descending colon there was some subtle mucosal granularity with specks of adherent yellow debris. From the splenic flexure through to the cecum there was moderate to severe inflammation with overlying exudate. No deep ulcers. The underlying mucosa was erythematous and friable. Biopsies were taken segmentally from the ascending, transverse, descending, sigmoid, and finally from the rectum. In the distal transverse there was an inflamed polypoid structure measuring up to about 1 cm in greatest dimension. I suspect this is probably a pseudopolyp in light of the underlying inflammatory process but took a biopsy from this location specifically to rule out any adenomatous or dysplastic features. An additional biopsy was taken from a similar polypoid inflammatory looking 12-15 mm structure in the cecum. The prep was so suboptimal that we could not easily identify the appendiceal orifice secondary to the amount of fibrous debris left over that was not amenable to irrigation and suction for removal. The patient had a fairly redundant colon and a moderate amount of scope looping. In light of the inflammatory process identified in the right colon along with the difficult prep conditions I did not attempt to navigate up into the terminal ileum. Endoscopic diagnosis 1. Moderate to severe right colonic inflammation from cecum to roughly the splenic flexure 2. Inflamed polypoid structure in the cecum 3. Inflamed polypoid structure in distal transverse 4. Suboptimal prep conditions Post-procedure Plan for aftercare: 1. Await histology. 2. Adalimumab trough and antibody levels would be appropriate. 3. Contingent on trough and antibody levels, change in therapy versus dose escalation will be required. For now continue 40 mg adalimumab every 2 weeks. 4. In the meantime, course of Entocort is being sent to your pharmacy. Ideally this starts to suppress the inflammatory process in the right colon and provides a bridge to the above necessary changes in therapy. 5. Urgent follow-up in primary care with respect to your blood sugar levels. These were unacceptably high preoperatively today. Disposition: PACU
[2023-04-20 16:03] VITALS: BP 103/63; PULSE 80; RESP 19; O2SAT 93
[2023-04-20 16:08] VITALS: BP 115/67; PULSE 84; RESP 17; TEMP 36; O2SAT 96
[2023-04-20 16:11] VITALS: BP 114/67; PULSE 81; RESP 15; TEMP 36.3; O2SAT 95
--- NOTE | 2023-04-20 16:48 | SUR.PHASEI ---
Dr. Mclean notified of CBG 229 while patient was in phase I. No new orders.
--- NOTE | 2023-04-20 16:49 | SUR.PHASEII ---
Discharge instructions reviewed with patient twice including follow up appt made with Abilio Chaney who is covering for Dr Fleming patient PCP for tomorrow at 3pm. Pt verbalized understanding
== END 2023-04-20 16:43 | disposition home or self-care (01) ==
PROVIDERS: PCP Family Medicine; Referring Provider Internal Medicine Gastroenterology; Visit Provider Internal Medicine Gastroenterology
PROC: 0DJD8ZZ Inspection of Lower Intestinal Tract, Via Natural or Artificial Opening Endoscopic (ICD-10-PCS; CPT 45378; principal; 2023-04-20 13:30)
DX: K52.9 Noninfective gastroenteritis and colitis, unspecified (principal); K51.40 Inflammatory polyps of colon without complications
CPT/HCPCS: 45380; 82962; J2704

== ENCOUNTER 2023-04-25 18:28 | Emergency (ER) | payer MEDICARE, MEDICAID, SELFPAY ==
[2023-04-25 18:37] VITALS: BP 124/79; PULSE 122; RESP 20; TEMP 36.4; O2SAT 97; BMI 29.0
--- NOTE | 2023-04-25 19:28 | ED_ITS ---
HPI - General Adult General Chief complaint: Diabetic Problem Stated complaint: blood sugar readings at 400 and higher Time Seen by Provider: 04/25/23 18:41 Source: patient Mode of arrival: Family Vehicle History of Present Illness HPI narrative: 72-year-old male with history of Crohn's disease, diabetes presents by private vehicle from home for elevated sugar readings at home. Patient states that he was told that he had high blood sugars on Thursday, but due to issues with his insurance he was not able to get a testing monitor or strips until today. When he checked his blood sugars they were repeatedly over 400 and he decided to come to the emergency department for evaluation. Patient states that he has been on budesonide for his Crohn's disease. Patient states that his blood sugars on Thursday were in the 400s as well, he was given 7 units of insulin, but he does not normally use insulin. Related Data Home Medications Medication Instructions Recorded Confirmed adalimumab 40 mg/0.4 mL 40 mg SUBCUT Q2W 04/20/23 04/25/23 subcutaneous pen kit (Humira(CF) Pen) losartan 25 mg tablet 25 mg PO DAILY 04/20/23 04/25/23 pantoprazole 40 mg tablet,delayed 40 mg PO BID 04/20/23 04/25/23 release budesonide 3 mg See Rx Instructions .Route .COMPLEX 04/25/23 04/25/23 capsule,delayed,extended release loperamide 2 mg capsule 4 mg PO BID 04/25/23 04/25/23 metoprolol succinate 50 mg 50 mg PO DAILY 04/25/23 04/25/23 tablet,extended release 24 hr sitagliptin phosphate 100 mg 100 mg PO QPM 04/25/23 04/25/23 tablet (Januvia) Previous Rx's Medication Instructions Recorded metformin 500 mg tablet 500 mg PO DAILY #60 tabs 04/25/23 ondansetron 4 mg disintegrating 4 mg PO Q8H PRN nausea and 04/25/23 tablet vomiting #60 tabs Allergies Allergy/AdvReac Type Severity Reaction Status Date / Time No Known Drug Allergies Allergy Verified 04/25/23 18:42 Review of Systems Review of Systems Narrative: Negative except as noted above Patient History Medical History Kidney stones Social History Smoking Status: Former smoker alcohol intake: former substance use type: does not use Smoking Status: Former smoker tobacco type: cigarettes Substance Use Type: does not use Exam Initial Vital Signs Initial Vital Signs: Vital Signs Temperature 97.6 F 04/25/23 18:37 Pulse Rate 122 H 04/25/23 18:37 Respiratory Rate 20 04/25/23 18:37 Blood Pressure 124/79 04/25/23 18:37 Pulse Oximetry 97 04/25/23 18:37 Oxygen Delivery Method Room Air 04/25/23 18:37 Const: Awake, alert, no acute distress, nontoxic appearing Eyes: PERRL, EOMI, conjunctiva normal ENT: Atraumatic, dentition normal, mucous membranes moist Cardiac: regular rate, regular rhythm RESP: unlabored, clear bilaterally, no wheezing GI: Atraumatic, soft, nontender, nondistended, no rebound, no guarding MSK: Atraumatic, full range of motion, pulses equal Skin: Warm, Dry, intact, no rashes Neuro: AO x3, CN II-XII grossly intact, moves all extremities Psych: affect normal, mood normal, not suicidal, not homicidal Course Orders Ordered: ED Orders 04/25/23 19:35 CBC Auto Diff [Complete Blood Count AUTO DIFF] Stat CMP [Comprehensive Metabolic Panel] Stat Discontinued Medications Insulin Human Regular (Insulin Regular 100 Unit/Ml 3 Ml Vial) 8 unit IV NOW ONE Stop: 04/25/23 19:29 Last Admin: 04/25/23 19:45 Dose: 8 unit Documented By: EMILE Co-signed By: CASSIUS Metformin HCl (Metformin Hcl 500 Mg Tablet) 500 mg PO NOW ONE Stop: 04/25/23 20:40 Last Admin: 04/25/23 21:03 Dose: Not Given Documented By: CHAR Vital Signs Vital signs: Vital Signs - 8 hr 04/25/23 18:37 Temperature 97.6 F Pulse Rate 122 H Respiratory Rate 20 Blood Pressure 124/79 Pulse Oximetry 97 Oxygen Delivery Method Room Air Medical Decision Making Differential Diagnosis Differential Diagnosis: Hypoglycemia, hyperglycemia, hyponatremia Lab Data 04/25/23 19:35 04/25/23 19:35 Labs: Lab Results 04/25/23 Range/Units 19:35 WBC 9.6 (4.5-11.0) X10^3/uL RBC 4.75 (4.5-5.9) X10^6/uL Hgb 14.6 (13.5-17.5) g/dL Hct 43.0 (41-53) % MCV 90.5 (80-100) fL MCH 30.8 (26-34) PG MCHC 34.0 (30-36) % RDW 13.2 (11.6-14.8) % Plt Count 368 (150-400) X10^3/uL Neut % (Auto) 74.9 (50-75) % Lymph % (Auto) 14.8 L (25-40) % [place] % (Auto) 9.2 (3-14) % Eos % (Auto) 0.6 L (2-4) % Baso % (Auto) 0.5 (0-2) % Neut # (Auto) 7200 H (3485-7447) /uL Lymph # (Auto) 1400 (2118-8366) /uL [place] # (Auto) 900 (0-900) /uL Eos # (Auto) 100 (0-450) /uL Baso # (Auto) 0 (0-100) /uL Sodium 132 L (137-145) mmol/L Potassium 4.2 (3.4-5.1) mmol/L Chloride 99 (98-107) mmol/L Carbon Dioxide 23 (22-32) mmol/L BUN 17 (9-20) mg/dL Creatinine 0.89 (0.66-1.25) mg/dL Estimated GFR > 60 (>60) mL/min BUN/Creatinine Ratio 19.1 (6-22) Glucose 398 H (80-110) mg/dL Calcium 9.3 (8.4-10.2) mg/dL Total Bilirubin 0.7 (0.2-1.3) mg/dL AST 42 (17-59) IU/L ALT 63 H (<50) IU/L Alkaline Phosphatase 317 H (38-126) U/L Total Protein 8.0 (6.3-8.2) g/dL Albumin 3.9 (3.5-5.0) g/dL Globulin 4.1 (1.7-4.1) g/dL Albumin/Globulin Ratio 1.0 (1.0-2.8) Point of Care Testing Glucose POC 344 Urine Dip Bedside Urine Glucose 1000 mg/dl Bedside Urine Bilirubin - Negative Bedside Urine Ketone - Negative Urine Specific [place] 1.015 Bedside Urine Occult Blood - Negative Bedside Urine pH 5.5 Bedside Urine Protein - Negative Bedside Urine Urobilinogen - Negative Bedside Urine Nitrite - Negative Bedside Urine Leukocytes - Negative Esterase Point of care testing: Point of Care Testing Glucose POC 344 Urine Dip Bedside Urine Glucose 1000 mg/dl Bedside Urine Bilirubin - Negative Bedside Urine Ketone - Negative Urine Specific [place] 1.015 Bedside Urine Occult Blood - Negative Bedside Urine pH 5.5 Bedside Urine Protein - Negative Bedside Urine Urobilinogen - Negative Bedside Urine Nitrite - Negative Bedside Urine Leukocytes - Negative Esterase MDM Narrative Medical decision making narrative: Well-appearing patient presents for asymptomatic hyperglycemia. Patient states he has not checked his glucose since he was told on Thursday that his sugars were 400s. Patient has likely been hyperglycemic for quite some time and didn't realize it, and hyperglycemia is likely worsened by patient being on steroids for his Crohn's disease. Laboratory work is reviewed, patient does not have any sign of infectious process or DKA. He was given IV fluids and insulin which did decrease his blood glucose. Patient is currently on Januvia at maximum dose. We will add metformin. Patient was advised to continue taking his Januvia and to add metformin. Patient states that many years ago he was on metformin and it use to make him vomit. He was encouraged to try this medication again to see if he has improved results with it, and nausea medication sent to pharmacy of choice. Patient was counseled to call his GI doctor 1st thing during normal business hours to see about medication changes for his Crohn's disease. If his Crohn's disease is flaring I do not want to take him off of his steroids, but this is likely exacerbating his hyperglycemia. ED return precautions discussed at bedside. Patient expressed understanding of the plan and is in agreement at this time. All questions answered at the time of discharge. Discharge Plan Departure Patient Disposition: Home Clinical Impression: Diabetes mellitus, Diabetes mellitus with hyperglycemia Instructions: DI for Diabetes Type 2 Activity Restrictions/Additional Instructions: AFTER SEVERAL DAYS IF YOU ARE TOLERATING THE METFORMIN YOU MAY INCREASE THIS TO 1000 MG DAILY. MAXIMUM DOSE IS 2000 MG DAILY. YOU MAY NOTICE AN UPSET STOMACH, THIS IS NORMAL AND USUALLY GOES AWAY AFTER SEVERAL DAYS. MAKE SURE TO DRINK PLENTY OF FLUIDS, WATCH YOUR SUGAR INTAKE. CALL YOUR DOCTOR TO SEE IF YOU SHOULD STOP TAKING YOUR STEROIDS OR IF THERE IS A DIFFERENT MEDICATION THAT YOU MAY TAKE FOR YOUR CROHN'S DISEASE Prescriptions: New metformin 500 mg tablet 500 mg PO DAILY Qty: 60 0RF ondansetron 4 mg tablet,disintegrating 4 mg PO Q8H PRN (Reason: nausea and vomiting) Qty: 60 0RF No Action losartan 25 mg tablet 25 mg PO DAILY Humira(CF) Pen 40 mg/0.4 mL pen injector kit 40 mg SUBCUT Q2W pantoprazole 40 mg tablet,delayed release (DR/EC) 40 mg PO BID loperamide 2 mg capsule 4 mg PO BID metoprolol succinate 50 mg tablet extended release 24 hr 50 mg PO DAILY budesonide 3 mg capsule,delayed,extend.release See Rx Instructions .ROUTE .COMPLEX Rx Instructions: take 3 capsules by mouth once daily for 2 MONTHS then take 2 caps... (REFER TO PRESCRIPTION NOTES). Januvia 100 mg tablet 100 mg PO QPM Referrals: Garry Fleming MD [Primary Care Provider] - Stand Alone Forms: Patient Portal/API
[2023-04-25] MEDS: INSULIN REGULAR 100 UNIT/ML 3 ML VIAL 8 UNIT IV (19:45)
[2023-04-25 19:51] LABS: Add Manual Diff / Slide Review NO; Basophils Absolute Auto 0 /uL (0-100); Basophils Percent Auto 0.5 % (0-2); Eosinophils Absolute Auto 100 /uL (0-450); Eosinophils Percent Auto 0.6 % (2-4); Hemoglobin 14.6 g/dL (13.5-17.5); Lymphocytes Absolute Auto 1400 /uL (1100-4500); Lymphocytes Percent Auto 14.8 % (25-40); Mean Corpuscular Hemoglobin 30.8 PG (26-34); Mean Corpuscular Volume 90.5 fL (80-100); Monocytes Absolute Auto 900 /uL (0-900); Monocytes Percent Auto 9.2 % (3-14); Neutrophils Absolute Auto 7200 /uL (1500-7000); Neutrophils Percent Auto 74.9 % (50-75); Platelet Count 368 X10^3/uL (150-400); Red Blood Cell Count 4.75 X10^6/uL (4.5-5.9); Red Cell Distribution Width 13.2 % (11.6-14.8); White Blood Cell Count 9.6 X10^3/uL (4.5-11.0)
[2023-04-25 20:04] LABS: Alanine Aminotransferase 63 IU/L (<50); Albumin 3.9 g/dL (3.5-5.0); Alkaline Phosphatase 317 U/L (38-126); Aspartate Aminotransferase 42 IU/L (17-59); BUN Creatinine Ratio 19.1 (6-22); Bilirubin Total 0.7 mg/dL (0.2-1.3); Blood Urea Nitrogen 17 mg/dL (9-20); Calcium 9.3 mg/dL (8.4-10.2); Carbon Dioxide 23 mmol/L (22-32); Chloride 99 mmol/L (98-107); Estimated Glomerular Filt Rate > 60 mL/min (>60); Globulin 4.1 g/dL (1.7-4.1); Glucose 398 mg/dL (80-110); HEMOLYSIS < 15 (0-50); Potassium 4.2 mmol/L (3.4-5.1); Sodium 132 mmol/L (137-145)
== END 2023-04-25 21:04 | disposition home or self-care (01) ==
PROVIDERS: Emergency Provider Emergency Medicine; PCP Family Medicine
DX: E11.65 Type 2 diabetes mellitus with hyperglycemia (principal)
CPT/HCPCS: 36415; 80053; 81003; 82962; 85025; 96374; 99284